=== PATIENT | female | born 1970 | race American Indian/Alaskan Native ===

== ENCOUNTER 2018-01-02 16:19 | Emergency (ER) | payer OTHER ==
[2018-01-02 16:42] VITALS: RESP 18
[2018-01-02] MEDS ORDERED: Sodium Chloride 0.9% 500 ML IV STA (16:51)
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
[2018-01-02 17:35] LABS: BASO # 0.02 K/mm3 (0.0-2.0); BASO % 0.9 % (0.0-3.0); EOS % 0.5 % (1.5-5.0); GRAN # 0.95 (1.4-6.5); GRAN % 44.2 % (50.0-68.0); LYMPH # 0.9 (1.2-3.4); LYMPH % 43.7 % (22.0-35.0); MEAN CELL VOLUME 96.7 fl (80.0-105.0); MEAN CORPUSCULAR HEMOGLOBIN 32.5 pg (25.0-35.0); MEAN CORPUSCULAR HGB CONC 33.6 g/dl (31.0-37.0); MEAN PLATELET VOLUME 10.3 fl (7.0-11.0); MONO # 0.2 (0.1-0.6); MONO % 10.7 % (1.0-6.0); RBC 3.38 10^6/uL (3.5-6.1); RED CELL DISTRIBUTION WIDTH 16.9 % (11.5-14.5)
[2018-01-02 17:45] LABS: ALB/GLOB RATIO 1.4 (1.1-1.8); ALBUMIN 4.4 g/dL (3.0-4.8); ALT/SGPT 157 U/L (7-56); AST/SGOT 338 U/L (14-36); BLOOD UREA NITROGEN 7 mg/dL (7-21); CALCIUM 9.8 mg/dL (8.4-10.5); GFR AFRICAN-AMERICAN > 60; GFR NON-AFRICAN AMERICAN > 60
[2018-01-02 17:46] LABS: ACETAMINOPHEN < 10.0 ug/ml (10.0-20.0); SALICYLATE < 1 mg/dL (2.0-20.0)
[2018-01-02 17:52] LABS: WHITE BLOOD COUNT 2.2 10^3/ul (4.5-11.0)
--- NOTE | 2018-01-02 23:25 | CARD ---
APPROVED REPORT EKG Measurement Heart [id number] <Conclusion> Sinus tachycardia Possible Left atrial enlargement Borderline ECG
[2018-01-02] MEDS: Sodium Chloride 0.9% 1,000 ML IV SCH (23:37)
[2018-01-03] MEDS: Sodium Chloride 0.9% 1,000 ML IV SCH (09:42)
[2018-01-03 13:39] VITALS: BMI 22.6
[2018-01-03] MEDS ORDERED: Pneumococcal 23-Valent Vaccine IM ONE (13:39)
[2018-01-03] MEDS ORDERED: Influenza Vaccine 60 mcg/0.5 mL SYR (4YR UP) IM ONE (13:39)
[2018-01-03 15:19] VITALS: BP 135/52; PULSE 81; TEMP 98.6; O2SAT 99
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
--- NOTE | 2018-01-05 09:08 | CP.PCM.PCO ---
Physician Communication Note - Physician Communication Note Physician Communication Note: pt martha harvey
== END 2018-01-03 16:10 | disposition home or self-care (01) ==
LOC: ED 16:19 → ERH 23:08 → UNDOADMIN 23:08 → ERH 01-03 15:17
DX: F10.239 Alcohol dependence with withdrawal, unspecified (principal); F10.229 Alcohol dependence with intoxication, unspecified; Y90.8 Blood alcohol level of 240 mg/100 ml or more; R74.8 Abnormal levels of other serum enzymes; I10 Essential (primary) hypertension; Z23 Encounter for immunization
CPT/HCPCS: 80053; 80320; 80329; 82550; 85025; 90471; 90732; 93005; 99285; J7040

== ENCOUNTER 2018-04-21 19:28 | Emergency (ER) | payer OTHER ==
[2018-04-21 19:35] VITALS: BMI 25.7
[2018-04-21 19:44] VITALS: TEMP 98.1; O2SAT 100
[2018-04-21 20:12] LABS: BASO # 0.04 K/mm3 (0.0-2.0); BASO % 1.3 % (0.0-3.0); EOS % 0.7 % (1.5-5.0); GRAN # 1.23 (1.4-6.5); GRAN % 40.1 % (50.0-68.0); HEMOGLOBIN 9.4 g/dL (12.0-16.0); LYMPH # 1.4 (1.2-3.4); LYMPH % 46.1 % (22.0-35.0); MEAN CELL VOLUME 84.2 fl (80.0-105.0); MEAN CORPUSCULAR HGB CONC 33.2 g/dl (31.0-37.0); MEAN PLATELET VOLUME 9.3 fl (7.0-11.0); MONO # 0.4 (0.1-0.6); MONO % 11.8 % (1.0-6.0); RBC 3.36 10^6/uL (3.5-6.1); RED CELL DISTRIBUTION WIDTH 15.6 % (11.5-14.5); WHITE BLOOD COUNT 3.1 10^3/ul (4.5-11.0)
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
[2018-04-21 20:22] LABS: ACETAMINOPHEN < 10.0 ug/ml (10.0-20.0); SALICYLATE < 1 mg/dL (2.0-20.0)
[2018-04-21 20:23] LABS: BLOOD UREA NITROGEN 3 mg/dL (7-21); CALCIUM 9.3 mg/dL (8.4-10.5); GFR AFRICAN-AMERICAN > 60; GFR NON-AFRICAN AMERICAN > 60
[2018-04-21] MEDS ORDERED: Potassium Chloride 20 mEq ER Tab PO STA (20:45)
[2018-04-21 21:58] LABS: BARBITURATES, UR NEGATIVE (NEGATIVE); BENZODIAZEPINES, UR NEGATIVE (NEGATIVE); OPIATES, UR NEGATIVE (NEGATIVE); PHENCYCLIDINE, UR NEGATIVE (NEGATIVE)
[2018-04-22 02:29] VITALS: BP 132/68; PULSE 80; RESP 16
== END 2018-04-22 02:25 | disposition home or self-care (01) ==
LOC: ED 19:28
DX: F10.129 Alcohol abuse with intoxication, unspecified (principal); E78.5 Hyperlipidemia, unspecified; I10 Essential (primary) hypertension

== ENCOUNTER 2018-05-02 14:20 | Inpatient (IN) | payer OTHER ==
[2018-05-02 14:20] VITALS: BMI 25.7
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
[2018-05-02] MEDS ORDERED: Sodium Chloride 0.9% 1,000 ML IV STA (15:10)
[2018-05-02 15:54] LABS: BARBITURATES, UR NEGATIVE (NEGATIVE); BENZODIAZEPINES, UR NEGATIVE (NEGATIVE); OPIATES, UR NEGATIVE (NEGATIVE); PHENCYCLIDINE, UR NEGATIVE (NEGATIVE)
[2018-05-02 16:16] LABS: BASO # 0.03 K/mm3 (0.0-2.0); BASO % 1.1 % (0.0-3.0); GRAN # 2.05 (1.4-6.5); GRAN % 77.4 % (50.0-68.0); HEMOGLOBIN 9.8 g/dL (12.0-16.0); LYMPH # 0.4 (1.2-3.4); LYMPH % 15.1 % (22.0-35.0); MEAN CELL VOLUME 83.8 fl (80.0-105.0); MEAN CORPUSCULAR HEMOGLOBIN 27.8 pg (25.0-35.0); MEAN CORPUSCULAR HGB CONC 33.2 g/dl (31.0-37.0); MEAN PLATELET VOLUME 9.6 fl (7.0-11.0); MONO # 0.2 (0.1-0.6); MONO % 6.4 % (1.0-6.0); RBC 3.52 10^6/uL (3.5-6.1); RED CELL DISTRIBUTION WIDTH 17.4 % (11.5-14.5)
[2018-05-02 16:22] LABS: WHITE BLOOD COUNT 2.7 10^3/ul (4.5-11.0)
[2018-05-02 16:26] LABS: ALB/GLOB RATIO 1.4 (1.1-1.8); ALBUMIN 4.5 g/dL (3.0-4.8); ALT/SGPT 60 U/L (7-56); AST/SGOT 169 U/L (14-36); BLOOD UREA NITROGEN 3 mg/dL (7-21); CALCIUM 9.4 mg/dL (8.4-10.5); GFR AFRICAN-AMERICAN > 60; GFR NON-AFRICAN AMERICAN > 60
[2018-05-02] MEDS ORDERED: Magnesium 2 gm/50 ml NS 2 GM/50 ML BAG IVPB ONE (16:26)
[2018-05-02 16:30] LABS: ACETAMINOPHEN < 10.0 ug/ml (10.0-20.0); SALICYLATE < 1 mg/dL (2.0-20.0)
[2018-05-02 16:37] LABS: TROPONIN I < 0.01 ng/mL
--- NOTE | 2018-05-02 16:39 | CT ---
PROCEDURE: CT HEAD WITHOUT CONTRAST. HISTORY: new onset of seizure COMPARISON: 01/18/2014 TECHNIQUE: Axial computed tomography images were obtained through the head/brain without intravenous contrast. Radiation dose: Total exam DLP = 859 mGy-cm. This CT exam was performed using one or more of the following dose reduction techniques: Automated exposure control, adjustment of the mA and/or kV according to patient size, and/or use of iterative reconstruction technique. FINDINGS: HEMORRHAGE: No intracranial hemorrhage. BRAIN: No mass effect or edema. Mild chronic microvascular changes. Mild atrophy VENTRICLES: Unremarkable. No hydrocephalus. CALVARIUM: Unremarkable. PARANASAL SINUSES: Unremarkable as visualized. No significant inflammatory changes. MASTOID AIR CELLS: Unremarkable as visualized. No inflammatory changes. OTHER FINDINGS: None. IMPRESSION: No acute findings
[2018-05-02 16:49] LABS: CK-MB 3.2 ng/mL (0.0-3.6)
--- NOTE | 2018-05-02 17:35 | RAD ---
HISTORY: seizure, medical clearance COMPARISON: No prior. FINDINGS: LUNGS: No active pulmonary disease. PLEURA: No significant pleural effusion identified, no pneumothorax apparent. CARDIOVASCULAR: Normal. OSSEOUS STRUCTURES: No significant abnormalities. VISUALIZED UPPER ABDOMEN: Normal. OTHER FINDINGS: None. IMPRESSION: No active disease.
[2018-05-02 18:20] LABS: URINE BILIRUBIN NEGATIVE (NEGATIVE); URINE BLOOD MODERATE (NEGATIVE); URINE GLUCOSE (UA) NEGATIVE (NEGATIVE); URINE LEUKOCYTE ESTERASE NEGATIVE Leu/uL (NEGATIVE); URINE PROTEIN >=300 mg/dL (<30 mg/dL)
[2018-05-02 18:22] LABS: URINE APPEARANCE CLEAR (CLEAR); URINE COLOR LIGHT YELLOW (YELLOW)
[2018-05-02 18:30] LABS: URINE WBC NEGATIVE /hpf (0-6)
[2018-05-02] MEDS: Dextrose 5%/0.45% NS 1,000 ML IV SCH (19:42)
[2018-05-02] MEDS ORDERED: Pneumococcal 23-Valent Vaccine IM ONE (21:57)
--- NOTE | 2018-05-03 05:58 | HP ---
HISTORY OF PRESENT ILLNESS: The patient is a 47-year-old came to emergency room via ambulance, accompanied by . She had seizure at home some time prior to coming to the emergency room. According to , she was standing, but fell and had tonic clonic seizure, and she did not really fall on the ground, her able to hold her. She was foaming at her mouth. There is no tongue bite, no urine or bowel incontinence. Complained of generalized weakness and headache. The patient has no recall of what happened. Apparently, the patient was admitted in December with similar episode of alcoholic intoxication. There is no history of nausea, vomiting. No diarrhea. No fever, no chills. No cough, congestion, or headaches. PAST MEDICAL HISTORY: Significant for: 1. Hypertension and hyperlipidemia. 2. History of alcohol dependence. MEDICATION AT HOME: She takes hydrochlorothiazide once in a while. She has to take amlodipine with benazepril 5/10 one tablet daily. ALLERGIES: SHE IS NOT ALLERGIC TO ANY MEDICATIONS. REVIEW OF SYSTEMS: Significant for generalized weakness, slight headache. PHYSICAL EXAMINATION: GENERAL: She is awake and alert, oriented, communicative. VITAL SIGNS: She is afebrile, pulse 89, respirations 18, blood pressure 141/79. LUNGS: Bilateral fair airflow. No rhonchi or crackles. HEART: S1 and S2 audible. ABDOMEN: Soft, nontender. No rebound. No guarding. NEUROLOGICAL: She is awake, alert, and oriented; communicative. LABORATORY DATA: WBC is 2.7, hemoglobin 9.3, hematocrit 29.5, platelets of 158. Chemistry, sodium , potassium 3.6, chloride 102, CO2 of 27, BUN 50, creatinine 0.4. Blood sugar of 102. Magnesium 1, AST 169, ALT 60, LDH . CPK of 400. Troponin is negative. Urinalysis shows moderate blood. Negative for leukocyte. Urine drug screen is negative. CT scan of the head is unremarkable. X-ray of chest is unremarkable. ASSESSMENT: 1. Alcoholic intoxication. 2. Seizure secondary to withdrawal. 3. Alcoholic gastritis. 4. Alcoholic hepatitis. 5. History of hypertension. PLAN: So the plan is patient will be admitted. We will give IV fluids. Magnesium has been supplemented. We will follow up electrolyte in the a.m. Start Protonix and start her on Librium and Ativan as needed. The patient will be admitted on the telemetry for close observation. Deirdre Payne MD
[2018-05-03 07:52] LABS: BASO # 0.03 K/mm3 (0.0-2.0); BASO % 1.1 % (0.0-3.0); EOS % 0.7 % (1.5-5.0); GRAN # 1.63 (1.4-6.5); GRAN % 60.2 % (50.0-68.0); HEMOGLOBIN 9.7 g/dL (12.0-16.0); LYMPH # 0.8 (1.2-3.4); LYMPH % 28.4 % (22.0-35.0); MEAN CELL VOLUME 84.3 fl (80.0-105.0); MEAN CORPUSCULAR HEMOGLOBIN 27.2 pg (25.0-35.0); MEAN CORPUSCULAR HGB CONC 32.3 g/dl (31.0-37.0); MEAN PLATELET VOLUME 10.2 fl (7.0-11.0); MONO # 0.3 (0.1-0.6); MONO % 9.6 % (1.0-6.0); RBC 3.56 10^6/uL (3.5-6.1); RED CELL DISTRIBUTION WIDTH 17.3 % (11.5-14.5)
[2018-05-03 07:57] LABS: WHITE BLOOD COUNT 2.7 10^3/ul (4.5-11.0)
[2018-05-03 08:10] LABS: ALB/GLOB RATIO 1.4 (1.1-1.8); ALBUMIN 4.4 g/dL (3.0-4.8); ALT/SGPT 46 U/L (7-56); AST/SGOT 105 U/L (14-36); BLOOD UREA NITROGEN 2 mg/dL (7-21); CALCIUM 9.1 mg/dL (8.4-10.5); GFR AFRICAN-AMERICAN > 60; GFR NON-AFRICAN AMERICAN > 60
[2018-05-03] MEDS ORDERED: Magnesium Sulfate 1 gm in D5W 1 GM/100 ML BAG IV ONE (09:36)
--- NOTE | 2018-05-03 10:47 | CARD ---
APPROVED REPORT EKG Measurement Heart [id number] <Conclusion> Normal sinus rhythm Mildly prolonged QTc No change
[2018-05-03] MEDS ORDERED: Thiamine 100 mg/ml Inj IV ONE (13:07)
--- NOTE | 2018-05-03 17:20 | PN ---
DATE: 05/03/2018 SUBJECTIVE: The patient is 47 years old. 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 She came back from work. She states she had stress. She felt dizzy and after that she does not know. noticed that she was falling. He caught her, but she had tonic-clonic seizure, was brought to the ER. By the time she came to the ER, she was feeling fine. Even on examination today, she wants to go home. PHYSICAL EXAMINATION VITAL SIGNS: She is afebrile, pulse 80, respirations 19, blood pressure 136/92. LUNGS: Bilateral fair airflow. No rhonchi or crackles. HEART: S1 and S2 audible. ABDOMEN: Soft, nontender. No rebound. No guarding. NEUROLOGICAL: She is awake and alert, able to communicate. LABORATORY DATA: Alcohol level is less than 10. Chemistry, sodium 141, potassium 3.2, chloride 100, CO2 of 30, BUN ____, creatinine 0.4, blood sugar of 89, AST 102. WBC is 12.7, hemoglobin 9.7, hematocrit 30, platelet of 161. ASSESSMENT AND PLAN: 1. New onset of seizure, etiology probably alcohol withdrawal, although, the patient is denying that she did not drink for 2 days. 2. Leukopenia. 3. Anemia. 4. Hypomagnesemia. 5. Alcoholic gastritis. 6. Alcoholic hepatitis. The patient has been started on oral feeding. We can discontinue telemetry. Continue seizure precautions. We will supplement potassium and continue her on thiamine. Start on magnesium oxide [address] scan of the brain has been ordered. I will also order EEG, awaiting neuro evaluation. Deirdre Payne MD
[2018-05-03] MEDS: Magnesium Oxide 400 mg Tab UD PO SCH (18:30)
[2018-05-03] MEDS: Dextrose 5%/0.45% NS 1,000 ML IV SCH (18:44)
[2018-05-04 08:56] LABS: HEMOGLOBIN 10.8 g/dL (12.0-16.0); MEAN CELL VOLUME 85.9 fl (80.0-105.0); MEAN CORPUSCULAR HEMOGLOBIN 27.8 pg (25.0-35.0); MEAN CORPUSCULAR HGB CONC 32.3 g/dl (31.0-37.0); MEAN PLATELET VOLUME 10.6 fl (7.0-11.0); RBC 3.89 10^6/uL (3.5-6.1); RED CELL DISTRIBUTION WIDTH 17.2 % (11.5-14.5)
[2018-05-04 08:58] LABS: WHITE BLOOD COUNT 2.9 10^3/ul (4.5-11.0)
[2018-05-04 09:25] LABS: ALB/GLOB RATIO 1.4 (1.1-1.8); ALT/SGPT 41 U/L (7-56); AST/SGOT 73 U/L (14-36); BLOOD UREA NITROGEN 7 mg/dL (7-21); CALCIUM 9.9 mg/dL (8.4-10.5); GFR AFRICAN-AMERICAN > 60; GFR NON-AFRICAN AMERICAN > 60
[2018-05-04] MEDS ORDERED: Potassium Chloride 20 mEq ER Tab PO ONE ×2 (09:27→20:00)
[2018-05-04] MEDS ORDERED: Magnesium Sulfate 2 GM in Sodium Chloride 0.9% 100 ML IV ONE (09:28)
[2018-05-04] MEDS ORDERED: Magnesium 2 gm/50 ml NS 2 GM/50 ML BAG IVPB ONE (09:45)
--- NOTE | 2018-05-04 10:14 | MRI ---
PROCEDURE: MRI BRAIN WITHOUT CONTRAST HISTORY: NEW SEIZURE COMPARISON: None. TECHNIQUE: Multiplanar, multisequence MR images of the brain were obtained without intravenous contrast enhancement. The sagittal T1 weighted sequence and the gradient echo axial images were not obtained. The patient could not tolerate any further scanning FINDINGS: HEMORRHAGE: None DWI: No evidence of an acute or early subacute infarction. BRAIN PARENCHYMA: No mass effect or edema. Chronic microvascular changes are seen in the periventricular white matter. VENTRICLES: Unremarkable. No hydrocephalus. CRANIUM: Unremarkable. ORBITS: Grossly unremarkable. PARANASAL SINUSES/MASTOIDS: Clear VASCULAR SYSTEM: Skull base flow voids intact. OTHER FINDINGS: None. IMPRESSION: Chronic microvascular changes. No acute intracranial findings
[2018-05-04] MEDS: Magnesium Oxide 400 mg Tab UD PO SCH ×2 (10:47→18:49)
[2018-05-04] MEDS: Pantoprazole 40 mg EC Tab PO SCH (10:48)
[2018-05-04 11:11] LABS: IRON 96 ug/dL (45-180)
[2018-05-04 11:20] LABS: % IRON SATURATION 20 % (20-55); TOTAL IRON BINDING CAPACITY 471 ug/dL (265-497)
--- NOTE | 2018-05-04 13:42 | PN ---
DATE: 05/04/2018 SUBJECTIVE: The patient has no complaints of any chest pain. No shortness of breath. No headache or dizziness. PHYSICAL EXAMINATION: VITAL SIGNS: Temperature is 98.5, pulse is 77, blood pressure 160/89, respirations 20. GENERAL: The patient is lying in bed, flat, comfortable. HEENT: No oral lesion. Anicteric sclerae. Moist mucosa. NECK: No JVD, adenopathy, or thyromegaly. CARDIOVASCULAR: S1 and S2, regular. No murmurs, rubs, or gallops. LUNGS: Clear to auscultation bilaterally. No wheeze, rales, or rhonchi. ABDOMEN: Bowel sounds are positive, soft, nontender and nondistended. EXTREMITIES: No cyanosis, clubbing or edema. LABORATORY DATA: White count of 2.9, hemoglobin 10.8. Creatinine is 0.4. MRI of the brain is pending. ASSESSMENT: 1. Leukopenia. 2. Hypomagnesemia. 3. Alcoholic gastritis. 4. Alcoholic hepatitis. 5. Seizures, most likely from withdrawal. 6. Anemia. PLAN: The patient is currently comfortable. The patient's magnesium is slowly improving, it is 1.6 this morning. The patient has hypokalemia. We will replace the patient's potassium. The patient's liver function is improving. The patient is being followed by Dr. Yancey. She is on Norvasc for hypertension. She is on thiamine. She is getting IV fluids. I will discontinue the patient's IV fluids at this point, she is able to eat. She is ambulating better. She has an EEG that has been ordered. Catrachito Graham MD
[2018-05-04 16:17] LABS: FERRITIN 30.7 ng/mL
--- NOTE | 2018-05-04 16:30 | CON ---
DATE: 05/04/2018 NEUROLOGY CONSULTATION CHIEF COMPLAINT: Seizures. HISTORY OF PRESENT ILLNESS: This is a 47-year-old woman with history of hypertension, hyperlipidemia, history of alcohol dependence, elevated alcohol level when she came in the hospital on 04/21/2018 of 287 who presented for seizure-like episode at home, generalized tonic-clonic, but did not fall the ground, her had to hold her. She was foaming at her mouth. No tongue bite. No bowel or bladder incontinence. She has a very flat affect. She seems very depressed and anxious. Her EEG was normal and MRI of the brain with and without contrast is unremarkable. No focal weakness of extremities. She has sleep deprivation, only sleeps 1 to 2 or even barely per night and is very stressed out and very depressed looking, awaiting for psychiatric consult. The patient is aggravated and trying to leave, tried to licensed mental health counselor her that she cannot leave due to her needs to be evaluated by Psychiatry. PAST MEDICAL HISTORY: History of hypertension, hyperlipidemia, history of alcohol dependence. MEDICATIONS: Reviewed by nurses' reconciliation sheet. ALLERGIES: NO KNOWN DRUG ALLERGIES. REVIEW OF SYSTEMS: A 14-point review of systems negative except in the HPI. FAMILY HISTORY: Noncontributory. SOCIAL HISTORY: Has history of alcohol dependence. No smoker. No illicit drug use. PHYSICAL EXAMINATION: VITAL SIGNS: Temperature 98, pulse rate of 77, blood pressure 160/89, respiratory rate 20, oxygen saturation 100% on room air. GENERAL: The patient is sitting up in bed, in no acute distress. HEENT: Head is atraumatic and normocephalic. PERRLA. Extraocular muscles intact. NECK: Supple. No JVD. No adenopathy noted. LUNGS: Clear to auscultation. No adventitious sounds. HEART: S1, S2. Normal rate and rhythm. No murmurs, rubs, or gallops. ABDOMEN: Soft, nontender, and nondistended. Bowel sounds present. EXTREMITIES: No clubbing. No cyanosis. Peripheral pulses 2+ felt bilaterally. NEUROLOGIC: The patient is alert and oriented to person, place, month, and year. Has very flat affect. Speech is fluent without any errors. Cranial nerves II through XII are intact. Motor: Normal tone, normal bulk and muscle. Moves all extremities equally. Sensory: Light touch, pinprick, proprioception, and vibration are intact. DTRs are 2+ throughout. No dysmetria noted. [id number] intact. Gait is normal. LABORATORY DATA: Sodium is 145, potassium 3.2, chloride 102, carbon dioxide 26, BUN 7, creatinine 0.5, random glucose 139. ASSESSMENT AND PLAN: This is a 47-year-old woman with history of alcohol dependence, less alcohol intoxication who was on 04/21/2018 with alcohol level of 287, history of hypertension, hyperlipidemia who has had a new onset of seizures, likely secondary to alcohol withdrawal superimposed on underlying sleep deprivation seizures. At this time, she is very anxious and very depressed according to me. At this time, would recommend, 1. Psychiatric evaluation for acute depression, insomnia, and chronic alcohol dependency. 2. Continue with Librium 25 mg p.o. every 8 hours and Ativan 1 mg IV every 6 hours for anxiety. 3. Thiamine 100 mg p.o. daily. 4. MRI of the brain, EEG is normal and she is clinically stable from my standpoint once cleared by Psychiatry. Thank you for this consult. Peter Yancey MD
[2018-05-04 16:48] LABS: FOLATE 5.1 ng/mL
--- NOTE | 2018-05-05 03:44 | CP.PCM.PN ---
Subjective - Date & Time of Evaluation Date of Evaluation: 05/04/18 Time of Evaluation: 19:10 (Seen earlier.) - Subjective Subjective: Patient is agitated. Not communicating. Medical record received. Received Ativan and Geodon earlier. This 47 year old woman is admitted with generalized weakness after having had a seizure. Has PMH of HTN,HLD, ETOH abuse. Objective - Vital Signs/Intake and Output Vital Signs (last 24 hours): Temp Pulse Resp BP Pulse Ox 97.7 F 86 16 132/97 H 100 05/04/18 14:00 05/04/18 14:00 05/04/18 14:00 05/04/18 14:00 05/04/18 14:00 Intake and Output: 05/04/18 05/05/18 18:59 06:59 Intake Total 720 Balance 720 - Medications Medications: Current Medications Amlodipine Besylate (Norvasc) 10 mg PO DAILY [facility] Last Admin: 05/04/18 10:48 Dose: 10 mg Chlordiazepoxide (Librium) 25 mg PO Q6 NORMA PRN Reason: Protocol Last Admin: 05/05/18 00:30 Dose: Not Given Lorazepam (Ativan) 1 mg IM Q4 NORMA PRN Reason: Protocol Last Admin: 05/05/18 02:50 Dose: Not Given Magnesium Oxide (Mag-Ox) 400 mg PO BID NORMA Last Admin: 05/04/18 10:47 Dose: 400 mg Pantoprazole Sodium (Protonix Ec Tab) 40 mg PO 0600 NORMA Last Admin: 05/04/18 10:48 Dose: 40 mg Thiamine HCl (Vitamin B1 Tab) 100 mg PO DAILY NORMA Last Admin: 05/04/18 10:50 Dose: 100 mg Ziprasidone (Geodon Inj) 20 mg IM ONCE PRN; Protocol PRN Reason: Symptoms of alcohol withdrawl Last Admin: 05/04/18 19:21 Dose: 20 mg - Labs Labs: 05/04/18 08:40 05/04/18 08:40 Most Recent Lab Values WBC 2.9 10^3/ul (4.5-11.0) L* 05/04/18 08:40 RBC 3.89 10^6/uL (3.5-6.1) 05/04/18 08:40 Hgb 10.8 g/dL (12.0-16.0) L 05/04/18 08:40 Hct 33.4 % (36.0-48.0) L 05/04/18 08:40 MCV 85.9 fl (80.0-105.0) 05/04/18 08:40 MCH 27.8 pg (25.0-35.0) 05/04/18 08:40 MCHC 32.3 g/dl (31.0-37.0) 05/04/18 08:40 RDW 17.2 % (11.5-14.5) H 05/04/18 08:40 Plt Count 169 10^3/uL (120.0-450.0) 05/04/18 08:40 MPV 10.6 fl (7.0-11.0) 05/04/18 08:40 Gran % 60.2 % (50.0-68.0) 05/03/18 06:30 Lymph % (Auto) 28.4 % (22.0-35.0) 05/03/18 06:30 Bay % (Auto) 9.6 % (1.0-6.0) H 05/03/18 06:30 Eos % (Auto) 0.7 % (1.5-5.0) L 05/03/18 06:30 Baso % (Auto) 1.1 % (0.0-3.0) 05/03/18 06:30 Gran # 1.63 (1.4-6.5) 05/03/18 06:30 Lymph # (Auto) 0.8 (1.2-3.4) L 05/03/18 06:30 Bay # (Auto) 0.3 (0.1-0.6) 05/03/18 06:30 Eos # (Auto) 0.0 (0.0-0.7) 05/03/18 06:30 Baso # (Auto) 0.03 K/mm3 (0.0-2.0) 05/03/18 06:30 Sodium 145 mmol/L (132-148) 05/04/18 08:40 Potassium 3.2 mmol/L (3.6-5.0) L 05/04/18 08:40 Chloride 102 mmol/L (98-107) 05/04/18 08:40 Carbon Dioxide 26 mmol/L (21-33) 05/04/18 08:40 Anion Gap 20 (10-20) 05/04/18 08:40 BUN 7 mg/dL (7-21) 05/04/18 08:40 Creatinine 0.5 mg/dl (0.7-1.2) L 05/04/18 08:40 Est GFR ( Amer) > 60 05/04/18 08:40 Est GFR (Non-Af Amer) > 60 05/04/18 08:40 Random Glucose 129 mg/dL (70-110) H 05/04/18 08:40 Calcium 9.9 mg/dL (8.4-10.5) 05/04/18 08:40 Phosphorus 3.3 mg/dL (2.5-4.5) 05/04/18 08:40 Magnesium 1.6 mg/dL (1.7-2.2) L 05/04/18 08:40 Iron 96 ug/dL (45-180) 05/04/18 10:25 TIBC 471 ug/dL (265-497) 05/04/18 10:25 % Saturation 20 % (20-55) 05/04/18 10:25 Ferritin 30.7 ng/mL 05/04/18 10:25 Total Bilirubin 0.9 mg/dL (0.2-1.3) 05/04/18 08:40 AST 73 U/L (14-36) H D 05/04/18 08:40 ALT 41 U/L (7-56) 05/04/18 08:40 Alkaline Phosphatase 48 U/L (38-126) 05/04/18 08:40 Lactate Dehydrogenase 916 U/L (333-699) H 05/02/18 16:00 Total Creatine Kinase 400 U/L (35-230) H 05/02/18 16:00 CK-MB (CK-2) 3.2 ng/mL (0.0-3.6) 05/02/18 16:00 CK-MB (CK-2) % Cancelled 05/02/18 16:00 Troponin I < 0.01 ng/mL 05/02/18 16:00 Total Protein 8.7 g/dL (5.8-8.3) H 05/04/18 08:40 Albumin 5.0 g/dL (3.0-4.8) H 05/04/18 08:40 Globulin 3.7 gm/dL 05/04/18 08:40 Albumin/Globulin Ratio 1.4 (1.1-1.8) 05/04/18 08:40 Vitamin B12 751 pg/mL (239-931) 05/04/18 10:25 Folate 5.1 ng/mL 05/04/18 10:25 Urine Color Light yellow (YELLOW) 05/02/18 18:15 Urine Appearance Clear (CLEAR) 05/02/18 18:15 Urine pH 7.0 (4.7-8.0) 05/02/18 18:15 Ur Specific [place] >= 1.030 (1.005-1.035) 05/02/18 18:15 Urine Protein >=300 mg/dL (<30 mg/dL) H 05/02/18 18:15 Urine Glucose (UA) Negative mg/dL (NEGATIVE) 05/02/18 18:15 Urine Ketones Trace mg/dL (NEGATIVE) H 05/02/18 18:15 Urine Blood Moderate (NEGATIVE) H 05/02/18 18:15 Urine Nitrate Negative (NEGATIVE) 05/02/18 18:15 Urine Bilirubin Negative (NEGATIVE) 05/02/18 18:15 Urine Urobilinogen 1.0 E.U./dL (<1 E.U./dL) H 05/02/18 18:15 Ur Leukocyte Esterase Negative Ann-Marie/uL (NEGATIVE) 05/02/18 18:15 Urine RBC 1 - 3 /hpf (0-2) 05/02/18 18:15 Urine WBC Negative /hpf (0-6) 05/02/18 18:15 Ur Epithelial Cells None /hpf (0-5) 05/02/18 18:15 Urine HCG, Qual Negative (NEGATIVE) 05/04/18 12:09 Salicylates < 1 mg/dL (2.0-20.0) L 05/02/18 16:00 Urine Opiates Screen Negative (NEGATIVE) 05/02/18 14:55 Urine Methadone Screen Negative (NEGATIVE) 05/02/18 14:55 Acetaminophen < 10.0 ug/ml (10.0-20.0) L 05/02/18 16:00 Ur Barbiturates Screen Negative (NEGATIVE) 05/02/18 14:55 Ur Phencyclidine Scrn Negative (NEGATIVE) 05/02/18 14:55 Ur Amphetamines Screen Negative (NEGATIVE) 05/02/18 14:55 U Benzodiazepines Scrn Negative (NEGATIVE) 05/02/18 14:55 U Oth Cocaine Metabols Negative (NEGATIVE) 05/02/18 14:55 U Cannabinoids Screen Negative (NEGATIVE) 05/02/18 14:55 Alcohol, Quantitative < 10 mg/dL (0-10) 05/02/18 16:00 - Constitutional Appears: Other (Restless.) - Head Exam Head Exam: ATRAUMATIC, NORMAL INSPECTION, NORMOCEPHALIC - Eye Exam Eye Exam: Normal appearance - ENT Exam ENT Exam: Normal External Ear Exam - Neck Exam Neck Exam: Normal Inspection - Respiratory Exam Respiratory Exam: NORMAL BREATHING PATTERN - Cardiovascular Exam Cardiovascular Exam: absent: JVD - GI/Abdominal Exam GI & Abdominal Exam: absent: Distended - Rectal Exam Rectal Exam: Deferred - Exam Additional comments: Deferred. - Extremities Exam Extremities Exam: Normal Inspection - Back Exam Back Exam: NORMAL INSPECTION - Neurological Exam Neurological Exam: Altered - Psychiatric Exam Psychiatric exam: Agitated - Skin Skin Exam: Normal Color Assessment and Plan - Assessment and Plan (Free Text) Assessment: Agitation. Alcohol abuse. HTN. HLD. Hypokalemia. Anemia. Plan: Geodon 10 mg IM x 1. Continue present management.
[2018-05-05] MEDS: Pantoprazole 40 mg EC Tab PO SCH (06:05)
--- NOTE | 2018-05-05 08:20 | EEG ---
ELECTROENCEPHALOGRAM DATE: 05/04/2018 CONDITION OF THE RECORDING: Drowsy. DIAGNOSIS: Seizure. MEDICATIONS: Reviewed by nurse per reconciliation sheet. INTERPRETATION: This is a 16-channel international recording. The background activity was composed of 8 cycles per second. There was small amount of beta activity of 16 to 20 cycles per second seen in this recording. There was small amount of theta activity of 5 to 7 cycles per second seen in this tracing. Drowsiness was characterized by the mixed beta and theta activities. The sleep was characterized by vertex transient waves, sleep spindles and bilateral slowing. Photic stimulation showed no changes in the tracing. No paroxysmal activities noted in this recording. CONCLUSION: This is a normal drowsy EEG. No evidence of any epileptiform activity. Please clinically correlate. Peter Yancey MD
[2018-05-05 08:46] VITALS: RESP 18
[2018-05-05] MEDS: Magnesium Oxide 400 mg Tab UD PO SCH ×2 (09:56→18:00)
--- NOTE | 2018-05-05 11:08 | PN ---
DATE: 05/05/2018 SUBJECTIVE: The events from yesterday have been noted. The patient did get some sleep. She does get agitated at times. She adamantly denies drinking. PHYSICAL EXAMINATION: VITAL SIGNS: Temperature is 97.7, pulse is 62, blood pressure is 133/70, respirations 20. GENERAL: The patient is lying in bed, flat, comfortable. HEENT: No oral lesion. Anicteric sclerae. Moist mucosa. NECK: No JVD, adenopathy, or thyromegaly. CARDIOVASCULAR: S1 and S2, regular. No murmurs, rubs, or gallops. LUNGS: Clear to auscultation bilaterally. No wheeze, rales, or rhonchi. ABDOMEN: Bowel sounds are positive. Soft, nontender and nondistended. EXTREMITIES: No cyanosis, clubbing or edema. DATA: No new labs. Brain MRI shows no acute findings. ASSESSMENT: 1. Leukopenia. 2. Hypomagnesemia. 3. Alcoholism. 4. Seizures, most likely from alcohol withdrawal. 5. Anemia, chronic. PLAN: The patient is currently comfortable. Her B12 and folate normal. Her magnesium and potassium were low yesterday. They were replaced. She is on Librium and we will continue. She is on magnesium replacement. The patient is on Norvasc for hypertension. She is on thiamine. We will order blood work tomorrow. She is on a one-to-one because she is danger to herself. She was trying to leave the hospital. The patient's has confirmed that she does drink and has vodka bottles that were found at home. Awaiting for psychiatric evaluation. Catrachito Graham MD
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
[2018-05-06] MEDS: Pantoprazole 40 mg EC Tab PO SCH (06:21)
[2018-05-06 07:07] LABS: HEMOGLOBIN 9.6 g/dL (12.0-16.0); MEAN CELL VOLUME 84.9 fl (80.0-105.0); MEAN CORPUSCULAR HEMOGLOBIN 27.3 pg (25.0-35.0); MEAN CORPUSCULAR HGB CONC 32.1 g/dl (31.0-37.0); MEAN PLATELET VOLUME 10.4 fl (7.0-11.0); RBC 3.52 10^6/uL (3.5-6.1); RED CELL DISTRIBUTION WIDTH 17.5 % (11.5-14.5); WHITE BLOOD COUNT 3.3 10^3/ul (4.5-11.0)
[2018-05-06 07:37] LABS: ALB/GLOB RATIO 1.4 (1.1-1.8); ALBUMIN 4.3 g/dL (3.0-4.8); ALT/SGPT 38 U/L (7-56); AST/SGOT 55 U/L (14-36); BLOOD UREA NITROGEN 13 mg/dL (7-21); CALCIUM 9.8 mg/dL (8.4-10.5); GFR AFRICAN-AMERICAN > 60; GFR NON-AFRICAN AMERICAN > 60
[2018-05-06] MEDS ORDERED: Multivitamin Therapeutic Tab PO SCH (08:00)
[2018-05-06 08:24] VITALS: BP 148/84; PULSE 91; TEMP 97.5; O2SAT 99
[2018-05-06] MEDS: Magnesium Oxide 400 mg Tab UD PO SCH ×2 (09:14→18:05)
--- NOTE | 2018-05-06 13:06 | PN ---
DATE: 05/06/2018 SUBJECTIVE: The patient states she is comfortable. She has no complaints of any headaches. She states she was able to sleep last night. She has no anxiety. PHYSICAL EXAMINATION: VITAL SIGNS: Temperature is 97.5, pulse of 91, blood pressure 148/84, respirations 18. GENERAL: The patient is lying in bed, flat, comfortable. HEENT: No oral lesion. Anicteric sclerae. Moist mucosa. NECK: No JVD, adenopathy, or thyromegaly. CARDIOVASCULAR: S1 and S2, regular. No murmurs, rubs, or gallops. LUNGS: Clear to auscultation bilaterally. No wheeze, rales, or rhonchi. ABDOMEN: Bowel sounds are positive. Soft, nontender and nondistended. EXTREMITIES: No cyanosis, clubbing or edema. LABORATORY DATA: White count of 3.3, hemoglobin 9.6, creatinine 0.5. ASSESSMENT: 1. Leukopenia. 2. Hypomagnesemia. 3. Alcoholism. 4. Seizures secondary to alcohol withdrawal. 5. Anemia, chronic. PLAN: The patient is currently on Geodon. The patient is going to continue with Librium. The patient is on magnesium replacement. She is on Norvasc for hypertension. She is getting vitamins. The patient has not had anymore seizures. No seizure medications this is secondary to alcohol withdrawal. We will await for the input from Psychiatry. The patient is on one-to-one. We will decrease the patient's Librium. Catrachito Graham MD
== END 2018-05-06 18:43 | disposition home or self-care (01) | DRG 897 ==
LOC: ED 14:20 → ERH 18:03 → 2RNO 20:57 → 5RSO 05-03 20:39
PROVIDERS: ADMIT Internal Medicine; ATTEND Internal Medicine Nephrology
DX: F10.239 Alcohol dependence with withdrawal, unspecified (principal); G40.89 Other seizures; E83.42 Hypomagnesemia; I10 Essential (primary) hypertension; E78.5 Hyperlipidemia, unspecified; K29.20 Alcoholic gastritis without bleeding; K70.10 Alcoholic hepatitis without ascites; Y90.0 Blood alcohol level of less than 20 mg/100 ml; D64.9 Anemia, unspecified; E87.6 Hypokalemia; D72.819 Decreased white blood cell count, unspecified; F41.9 Anxiety disorder, unspecified; Z72.820 Sleep deprivation